=== PATIENT | female | born 1935 | race Caucasian/White ===

== ENCOUNTER 2018-02-13 11:46 | Inpatient (IN) ==
[2018-02-13] MEDS ORDERED: Bisacodyl 10 MG RECTAL SUPPOSITORY RC PRN (15:33)
[2018-02-13] MEDS ORDERED: Acetaminophen 650 MG RECTAL SUPP RC PRN (15:33)
[2018-02-13] MEDS ORDERED: Haloperidol Oral Conc 10 MG/5 ML UDC PO PRN (15:33)
[2018-02-13] MEDS ORDERED: *HR* LORazepam 0.5 MG TABLET PO PRN (15:33)
[2018-02-13] MEDS ORDERED: Hyoscyamine SL 0.125 MG TAB.SUBL SL PRN (15:33)
[2018-02-13] MEDS ORDERED: Sennosides 8.6 MG TABLET PO PRN (15:33)
[2018-02-13] MEDS ORDERED: Morphine Oral CONC 5 MG/0.25 ML ORAL.SYG PO PRN (15:33)
[2018-02-13] MEDS ORDERED: *HR* OxyCODONE/APAP 5/325 TABLET PO PRN (15:49)
[2018-02-13] MEDS ORDERED: Furosemide 40 MG TABLET PO SCH (17:00)
[2018-02-13] MEDS ORDERED: Ondansetron ODT 4 MG TAB.RAPDIS SL SCH (18:00)
[2018-02-13] MEDS ORDERED: clonazePAM 0.5 MG TABLET PO SCH (21:00)
[2018-02-14] MEDS ORDERED: Sennosides 8.6 MG TABLET PO PRN (08:30)
[2018-02-14] MEDS ORDERED: Diltiazem CD (24hr) 300 MG CAPSULE PO SCH (09:00)
[2018-02-14] MEDS ORDERED: *HR* Amiodarone 200 MG TABLET PO SCH (09:00)
[2018-02-17 19:17] VITALS: BP 79/51
== END 2018-02-18 17:17 | disposition hospice, home (50) | DRG 951 ==
LOC: INPPIK 11:47
PROVIDERS: ADMIT Internal Medicine; ATTEND Internal Medicine